=== PATIENT | male | born 1980 | race Caucasian/White ===

== ENCOUNTER 2018-01-20 10:15 | Emergency (ER) | payer SELFPAY ==
[2018-01-20 11:06] LABS: BASOPHILS # (AUTO) 0.1 10^3/uL (0.0-0.1); EOSINOPHILS % (AUTO) 0.5 %; HGB - HEMOGLOBIN 13.8 g/dL (14.0-18.0); LYMPHOCYTES # (AUTO) 1.1 10^3/uL (1.5-3.5); LYMPHOCYTES % (AUTO) 17.7 %; MEAN CORPUSCULAR HEMOGLOBIN 38.8 pg (27.0-31.0); MEAN CORPUSCULAR HGB CONC 35.4 g/dL (32.0-36.0); MEAN CORPUSCULAR VOLUME 109.7 fL (80.0-94.0); MEAN PLATELET VOLUME 9.3 fL (7.4-11.4); MONOCYTES # (AUTO) 0.4 10^3/uL (0.0-1.0); NEUTROPHILS # (AUTO) 4.6 10^3/uL (1.5-6.6); NEUTROPHILS % (AUTO) 73.8 %; PLT - PLATELET COUNT 137 10^3/uL (130-450); RED BLOOD COUNT 3.56 10^6/uL (4.70-6.10); RED CELL DISTRIBUTION WIDTH 15.2 % (12.0-15.0); WHITE BLOOD COUNT 6.2 x10^3/uL (4.8-10.8)
--- NOTE | 2018-01-20 11:11 | ED Physician Documentation ---
History of Present Illness - Stated complaint Stated Complaint: BILAT LEG PX - Chief complaint Chief Complaint: Ext Problem - History obtained from History obtained from: Patient - Additonal information Additional information: The patient is a 37-year-old male who is concerned about "purple" spots on his feet and ankles, as well as a feeling of "pins and needles" in his feet sometimes at night. He states I "just don't feel right." He has noticed the symptoms over the past year. He does not have a primary physician, and his friends have advised him that his symptoms might be due to the diabetes. He drinks alcohol on a daily basis, and smokes cigarettes. Review of Systems Constitutional: denies: Fever Eyes: denies: Irritation Ears: denies: Tinnitus/ringing Nose: denies: Congestion Throat: denies: Sore throat Cardiac: denies: Chest pain / pressure, Palpitations Respiratory: reports: Cough (chronic smoker's cough). denies: Dyspnea GI: denies: Abdominal Pain, Nausea, Vomiting : denies: Dysuria Skin: denies: Rash Musculoskeletal: denies: Extremity swelling Neurologic: reports: Other ("Pins and needles" in feet sometimes at night.). denies: Focal weakness, Numbness Endocrine: denies: Polydypsia, Polyuria PD PAST MEDICAL HISTORY - Past Medical History Cardiovascular: None Respiratory: None Endocrine/Autoimmune: None GI: None : None HEENT: None Psych: None Musculoskeletal: None Derm: None - Past Surgical History Past Surgical History: No - Present Medications Home Medications: Ambulatory Orders Medication Instructions Recorded Confirmed No Known Home Medications [No 01/20/18 01/20/18 Known Home Medications] - Allergies Allergies/Adverse Reactions: Allergies Allergy/AdvReac Type Severity Reaction Status Date / Time No Known Drug Allergies Allergy Verified 01/13/16 16:06 - Social History Does the pt smoke?: Yes Smoking Status: Current every day smoker Does the pt drink ETOH?: Yes Does the pt have substance abuse?: No - Immunizations Immunizations are current?: Yes PD ED PE NORMAL - Vitals Vital signs reviewed: Yes (hypertensive) - General General: Alert and oriented X 3, Well developed/nourished, Other (Odor of stale alcohol on his breath.) - HEENT HEENT: Atraumatic, Pharynx benign - Neck Neck: No adenopathy, No JVD - Cardiac Cardiac: RRR, No murmur - Respiratory Respiratory: No respiratory distress, Clear bilaterally - Abdomen Abdomen: Soft, Non tender, No organomegaly, Other (Rotund abdomen.) - Back Back: No CVA TTP - Derm Derm: Other (Petechia noted on ankles, consistent with capillary fragility.) - Extremities Extremities: No edema, No calf tenderness / cord - Neuro Neuro: Alert and oriented X 3, No motor deficit, No sensory deficit Results - Vitals Vitals: Vital Signs - 24 hr 01/20/18 01/20/18 10:20 11:51 Temperature 36.3 C L Heart Rate 95 92 Respiratory 16 20 Rate Blood Pressure 141/103 H 154/119 H O2 Saturation 100 98 Oxygen O2 Source Room air - Labs Labs: Laboratory Tests 01/20/18 01/20/18 11:03 11:03 WBC 6.2 RBC 3.56 L Hgb 13.8 L Hct 39.1 L MCV 109.7 H MCH 38.8 H MCHC 35.4 RDW 15.2 H Plt Count 137 MPV 9.3 Neut # (Auto) 4.6 Lymph # (Auto) 1.1 L Young # (Auto) 0.4 Eos # (Auto) 0.0 Baso # (Auto) 0.1 Absolute Nucleated RBC 0.00 Nucleated RBC % 0.0 Sodium 138 Potassium 3.1 L Chloride 97 L Carbon Dioxide 32 Anion Gap 9.0 BUN 7 Creatinine 0.8 Estimated GFR (MDRD) 108 Glucose 87 Calcium 8.4 L Total Bilirubin 1.4 H AST 129 H ALT 57 Alkaline Phosphatase 126 H Total Protein 6.4 L Albumin 3.3 Globulin 3.1 Albumin/Globulin Ratio 1.1 Lipase 42 PD MEDICAL DECISION MAKING - ED course Complexity details: reviewed results, re-evaluated patient, considered differential, d/w patient ED course: The patient's presentation is consistent with stigmata of chronic alcohol abuse. The small petechiae and his ankles is consistent with capillary fragility. Laboratory results reveal macrocytosis, mild hypokalemia with potassium 3.1, and mild elevation of his liver enzymes, with bilirubin 1.4 and alkaline phosphatase 126. There is no clinical evidence of diabetes, with a normal blood sugar of 87. Disposition I discussed with the patient the underlying cause of his symptoms, and offered counseling for alcohol addiction. He declined. He will continue to seek an accepting primary care physician. I discussed with him potentially worrisome signs or symptoms that should prompt reevaluation in the emergency department. - Sepsis Event Vital Signs: Vital Signs - 24 hr 01/20/18 01/20/18 10:20 11:51 Temperature 36.3 C L Heart Rate 95 92 Respiratory 16 20 Rate Blood Pressure 141/103 H 154/119 H O2 Saturation 100 98 Oxygen O2 Source Room air Departure - Departure Disposition: 01 Home, Self Care Clinical Impression: Capillary fragility, Alcohol abuse Condition: Stable Instructions: ED Alcohol Abuse Comments: Try to refrain from alcohol. Take supplemental vitamin with folate. Follow-up with primary physician at next available appointment. Return to the emergency department if you develop worsening symptoms. Discharge Date/Time: 01/20/18 11:51
[2018-01-20 11:19] LABS: ALBUMIN 3.3 g/dL (3.2-5.5); ALBUMIN/GLOBULIN RATIO 1.1 (1.0-2.2); BILIRUBIN,TOTAL 1.4 mg/dL (0.2-1.0); CALCIUM 8.4 mg/dL (8.5-10.3); CREATININE 0.8 mg/dL (0.6-1.2); TOTAL PROTEIN 6.4 g/dL (6.7-8.2)
[2018-01-20 11:53] VITALS: BP 154/119
== END 2018-01-20 11:51 | disposition home or self-care (01) ==
LOC: ED 10:15
DX: D69.8 Other specified hemorrhagic conditions (principal); F10.10 Alcohol abuse, uncomplicated; F17.200 Nicotine dependence, unspecified, uncomplicated
CPT/HCPCS: 36415; 80053; 83690; 85025; 99283

== ENCOUNTER 2018-09-04 13:09 | Emergency (ER) | payer SELFPAY ==
--- NOTE | 2018-09-04 14:01 | XRAY Report ---
Reason: chest paIn Procedure Date: 09/04/2018 Accession Number: [id number] / [id number] Procedure: XR - Chest 1 View X-Ray CPT Code: 37495 FULL RESULT: EXAM: CHEST RADIOGRAPHY EXAM DATE: 09/04/2018 01:43 PM. CLINICAL HISTORY: Chest pain. COMPARISON: [facility]BS W/PA CHEST LT 10/28/2014 8:46 AM. TECHNIQUE: 1 view. FINDINGS: Lungs/Pleura: No focal opacities evident. No pleural effusion. No pneumothorax. Mediastinum: Within exam limitations, the cardiomediastinal contour is normal. Other: None. IMPRESSION: No acute cardiopulmonary abnormality. RADIA
[2018-09-04 14:27] LABS: ALBUMIN 3.5 g/dL (3.2-5.5); ALBUMIN/GLOBULIN RATIO 1.1 (1.0-2.2); BILIRUBIN,TOTAL 1.5 mg/dL (0.2-1.0); CALCIUM 8.8 mg/dL (8.5-10.3); CREATININE 0.8 mg/dL (0.6-1.2); TOTAL PROTEIN 6.8 g/dL (6.7-8.2)
--- NOTE | 2018-09-04 14:46 | ED Physician Documentation ---
PD HPI ABD PAIN - Stated complaint Stated Complaint: CP - Chief complaint Chief Complaint: Cardiac - History obtained from History obtained from: Patient - History of Present Illness Timing - onset: Other (Had 2 dental extractions 4 days ago. Next day developed sharp/stabbing Left upper chest pain that comes and goes. Worse with cough and movement and deep breathing. Better after using vicodin and alcohol together this morning.) - Additional information Additional information: Admits to drinking "a lot" and "enough." No other current drug use but H/O polysubstance use. Review of Systems Ten Systems: 10 systems reviewed and negative Constitutional: denies: Fever, Chills Nose: reports: Reviewed and negative Throat: reports: Reviewed and negative Cardiac: reports: Chest pain / pressure, Reviewed and negative Respiratory: reports: Cough. denies: Dyspnea GI: denies: Abdominal Pain, Nausea, Vomiting PD PAST MEDICAL HISTORY - Past Medical History Cardiovascular: None Respiratory: None Endocrine/Autoimmune: None GI: None : None HEENT: None Psych: None Musculoskeletal: None Derm: None - Past Surgical History Past Surgical History: No - Present Medications Home Medications: Ambulatory Orders Medication Instructions Recorded Confirmed Amoxicillin 500 mg PO 09/04/18 Ibuprofen 800 mg PO 09/04/18 09/04/18 Oxycodone HCl/Acetaminophen 09/04/18 [Oxycodone-Acetaminophen 5-325] Potassium Gluconate 99 mg PO 09/04/18 - Allergies Allergies/Adverse Reactions: Allergies Allergy/AdvReac Type Severity Reaction Status Date / Time No Known Drug Allergies Allergy Verified 09/04/18 13:34 - Social History Does the pt smoke?: Yes Smoking Status: Current every day smoker Does the pt drink ETOH?: Yes Does the pt have substance abuse?: No - Immunizations Immunizations are current?: Yes PD ED PE NORMAL - Vitals Vital signs reviewed: Yes - General General: Alert and oriented X 3, No acute distress - HEENT HEENT: PERRL, EOMI - Neck Neck: Supple, no meningeal sign, No bony TTP - Cardiac Cardiac: RRR, No murmur - Respiratory Respiratory: No respiratory distress, Clear bilaterally - Abdomen Abdomen: Soft, Non tender - Back Back: No CVA TTP, No spinal TTP - Derm Derm: Normal color, Warm and dry - Extremities Extremities: No edema, No calf tenderness / cord - Neuro Neuro: Alert and oriented X 3, Normal speech Results - Vitals Vitals: Vital Signs - 24 hr 09/04/18 09/04/18 09/04/18 13:31 14:51 14:54 Temperature 36.7 C 36.5 C Heart Rate 93 91 Respiratory 20 18 Rate Blood Pressure 146/87 H 117/70 Blood Pressure 117/70 [Left] O2 Saturation 98 99 Oxygen O2 Source Room air - EKG (time done) 1344 Rate: Rate (enter#) (91) Rhythm: NSR [place]: Normal Intervals: Normal MS QRS: Normal Ischemia: Non specific changes Computer interpretation: Agree with computer - Labs Labs: Laboratory Tests 09/04/18 09/04/18 14:03 14:03 Sodium 138 Potassium 3.3 L Chloride 97 L Carbon Dioxide 31 Anion Gap 10.0 BUN 10 Creatinine 0.8 Estimated GFR (MDRD) 108 Glucose 89 Calcium 8.8 Total Bilirubin 1.5 H AST 83 H ALT 65 H Alkaline Phosphatase 102 Troponin I < 0.04 Total Protein 6.8 Albumin 3.5 Globulin 3.3 Albumin/Globulin Ratio 1.1 Lipase 34 - Rads (name of study) 1v chest Radiology: EMP read contemporaneously (NAD) PD MEDICAL DECISION MAKING - ED course ED course: This is a 37-year-old gentleman with musculoskeletal left-sided chest pain that is been constant for 3 days. Nothing in the history to suggest PE, he was not under general anesthesia for the dental extraction. Departure - Departure Disposition: 01 Home, Self Care Clinical Impression: Alcohol abuse, Pleurisy Condition: Good Record reviewed to determine appropriate education?: Yes Instructions: ED Chest Pain NonCardiac Comments: You can take ibuprofen as needed for the pain. Return for new or worsening symptoms. As discussed it is imperative to cut down in your drinking, in fact he should stop drinking. You are developing liver damage from it.
[2018-09-04 14:52] VITALS: BP 117/70
== END 2018-09-04 15:27 | disposition home or self-care (01) ==
LOC: ED 13:09
DX: R09.1 Pleurisy (principal); F10.10 Alcohol abuse, uncomplicated; F17.200 Nicotine dependence, unspecified, uncomplicated
CPT/HCPCS: 36415; 71045; 80053; 83690; 84484; 85025; 93005; 99283

== ENCOUNTER 2019-05-09 19:45 | Emergency (ER) | payer OTHER ==
--- NOTE | 2019-05-09 19:47 | ED Physician Documentation ---
History of Present Illness - Stated complaint Stated Complaint: FIT FOR CONFINEMENT - History obtained from History obtained from: Patient, Police - History of Present Illness Timing: Today (He was brought in by deputy court clerk for alcohol intoxication and medical clearance for the intermediate. The prehospital breathalyzer was 346. Last drink was about an hour and a half ago. Patient has no specific complaints or injuries.) Review of Systems Cardiac: denies: Chest pain / pressure, Palpitations Respiratory: denies: Dyspnea, Cough PD PAST MEDICAL HISTORY - Past Medical History Cardiovascular: None Respiratory: None Endocrine/Autoimmune: None GI: None : None HEENT: None Psych: None Musculoskeletal: None Derm: None - Past Surgical History Past Surgical History: No - Present Medications Home Medications: Ambulatory Orders Medication Instructions Recorded Confirmed No Known Home Medications 05/09/19 05/09/19 - Allergies Allergies/Adverse Reactions: Allergies Allergy/AdvReac Type Severity Reaction Status Date / Time No Known Drug Allergies Allergy Verified 05/09/19 20:10 - Social History Does the pt smoke?: Yes Smoking Status: Current every day smoker Does the pt drink ETOH?: Yes Does the pt have substance abuse?: No - Immunizations Immunizations are current?: Yes PD ED PE NORMAL - Vitals Vital signs reviewed: Yes - General General: Alert and oriented X 3, No acute distress - HEENT HEENT: PERRL, EOMI - Neck Neck: Supple, no meningeal sign, No bony TTP - Cardiac Cardiac: RRR, No murmur - Respiratory Respiratory: No respiratory distress, Clear bilaterally - Abdomen Abdomen: Non tender - Neuro Neuro: Alert and oriented X 3, No motor deficit, No sensory deficit, Normal speech Results - Vitals Vitals: Vital Signs - 24 hr 05/09/19 19:48 Temperature 36.7 C Heart Rate 100 Respiratory 18 Rate Blood Pressure 138/104 H O2 Saturation 99 Oxygen O2 Source Room air PD MEDICAL DECISION MAKING - ED course ED course: Spoke with Kaylyn Gill intermediate nurse practitioner who agrees with plan and will monitor for withdrawal since his blood alcohol is quite high but his mental status is normal and this likely suggest that he is a chronic alcoholic. Otherwise does not need any specific medical care right now as he is alert and oriented and has been an hour or 2 without drinking. Departure - Departure Disposition: 01 Home, Self Care Clinical Impression: Alcohol abuse Condition: Good Record reviewed to determine appropriate education?: Yes Instructions: ED Alcohol Intoxication Discharge Date/Time: 05/09/19 19:50
[2019-05-09 20:08] VITALS: BP 138/104
== END 2019-05-09 19:50 | disposition home or self-care (01) ==
LOC: ED 19:45
DX: Z02.89 Encounter for other administrative examinations (principal); F10.10 Alcohol abuse, uncomplicated; F17.200 Nicotine dependence, unspecified, uncomplicated
CPT/HCPCS: 99281; 99283

== ENCOUNTER 2021-01-31 08:33 | Emergency (ER) | payer MEDICAID ==
[2021-01-31 08:54] VITALS: BP 122/97
--- NOTE | 2021-01-31 08:54 | ED Physician Documentation ---
PD HPI Fall - Stated complaint Stated Complaint: RIB PX - History obtained from History obtained from: Patient - History of Present Illness Mechanism of injury: Tripped, Lost balance Fall distance: Other (down several stairs, and struck right lateral chestwall on railing. Pain at rib/chest that has continued. Worse today when coughed. Some dyspnea.) Timing - onset: How many days ago (6) Injury(ies) location: Chest (right lateral chestwall) Quality of pain: Pain, Sharp Associated symptoms: Dyspnea. No: LOC, AMS, Weakness, Paresthesias Worsens with: Movement, Other (cough and deep breathing) Contributing factors: No: Anticoagulated, Intoxicated Similar symptoms before: Diagnosis (prior rib fractures, and knew "no particular treatment' so had not sought care until hurt more today and felt some dyspnea.) Recently seen: Not recently seen Review of Systems Constitutional: denies: Fever, Chills, Myalgias Nose: denies: Rhinorrhea / runny nose, Congestion Cardiac: reports: Chest pain / pressure. denies: Palpitations, Pedal edema, Calf pain Respiratory: reports: Cough (the past couple of days). denies: Wheezing Skin: denies: Abrasion (s), Laceration (s) Neurologic: denies: Focal weakness, Numbness PD PAST MEDICAL HISTORY - Past Medical History Cardiovascular: None Respiratory: None Endocrine/Autoimmune: None GI: None : None HEENT: None Psych: None Musculoskeletal: None Derm: None - Past Surgical History Past Surgical History: No - Present Medications Home Medications: Ambulatory Orders Medication Instructions Recorded Confirmed HYDROcod/ACETAM 5/325 [[place] 5/325] 1 ea PO Q6H PRN #20 tablet 01/31/21 Ibuprofen [Motrin] 600 mg PO TID PRN #25 tab 01/31/21 PARoxetine HCl [Paxil] 1 tab PO DAILY 01/31/21 01/31/21 - Allergies Allergies/Adverse Reactions: Allergies Allergy/AdvReac Type Severity Reaction Status Date / Time No Known Drug Allergies Allergy Verified 01/31/21 08:54 - Social History Does the pt smoke?: Yes Smoking Status: Current every day smoker Does the pt drink ETOH?: Yes Does the pt have substance abuse?: No - Immunizations Immunizations are current?: Yes - POLST Patient has POLST: No PD ED PE NORMAL - Vitals Vital signs reviewed: Yes - General General: Alert and oriented X 3, No acute distress (he appears uncomfortable with movement and deep breathing), Well developed/nourished - Neck Neck: Supple, no meningeal sign, No bony TTP - Cardiac Cardiac: RRR, No murmur - Respiratory Respiratory: Clear bilaterally, Other (right lateral chest wall anbout rib 8 with tenderness but no crepitance. No bruising seen. ) - Abdomen Abdomen: Soft, Non tender - Derm Derm: Normal color, Warm and dry - Extremities Extremities: Normal ROM s pain - Neuro Neuro: Alert and oriented X 3, No motor deficit, No sensory deficit, Normal speech Results - Vitals Vitals: Oxygen O2 Source Room air - Rads (name of study) right ribs with chest Radiology: Prelim report reviewed (no PTX nor effusion. 8th rib fracture minimally displaced. Remote healed 9th rib fracture. ), See rad report PD MEDICAL DECISION MAKING - ED course Complexity details: reviewed results, considered differential, d/w patient ED course: I signed AFL[employer] form for him with diagnosis. Work note for off few days then light duty. He does lifting and torsional work. Departure - Departure Disposition: 01 Home, Self Care Clinical Impression: Accidental fall Qualifiers: Encounter type: initial encounter Qualified Code(s): W19.XXXA - Unspecified f all, initial encounter Rib fractures Qualifiers: Encounter type: initial encounter Fracture type: closed Laterality: right Qualified Code(s): S22.41XA - Multiple fractures of ribs, right side, initial encounter for closed fracture Condition: Stable Record reviewed to determine appropriate education?: Yes Instructions: ED Fx Rib Prescriptions: Ibuprofen [Motrin] 600 mg PO TID PRN #25 tab PRN Reason: Pain HYDROcod/ACETAM 5/325 [[place] 5/325] 1 ea PO Q6H PRN #20 tablet PRN Reason: Pain Comments: You have 2 or 3 broken ribs on x-ray. To appear just hairline cracks with one a bit more out of place. You will likely need this week as well off work. Progress activity as tolerated after that. Purposeful deep breathing for good lung expansion. Your x-ray does not show any lung injury. Anti-inflammatory such as ibuprofen 3 times a day with food. To that add Tylenol or hydrocodone as needed for pain. Follow-up with your primary care or walk-in clinic if not improved well over the next week or so. It would likely take 4 to 6 weeks to really resolve completely but activity as tolerated after another week or so. Transmitted your prescription to [facility] in [place]. I am prescribing a short course of narcotic pain medication for you. These are potentially dangerous and addictive medications that should be used carefully. These medications may constipate you. Take an [id number] stool softener such as docusate twice daily with plenty of water while taking these medications. If you go 24 hours without a bowel movement, take [id number] MiraLAX, per package instructions. Do not drink or drive while taking these medications. If you received narcotic or sedating medications while in the emergency department do not drive for 24 hours. Store this medication in a safe, secure place and out of reach of children. It is a violation of federal law to give or sell this medication to another person or to use in a manner other than prescribed. The ED will not refill narcotic prescriptions, including prescriptions lost or stolen. You can dispose of unwanted medications at the [facility]'s office or at several pharmacies such as [facility]. Forms: Activity restrictions Discharge Date/Time: 01/31/21 10:14
[2021-01-31] MEDS ORDERED: IBUPROFEN 600 MG TABLET PO STA (09:04)
[2021-01-31] MEDS ORDERED: HYDROcod/ACETAM 5/325 MG TABLET PO STA (09:04)
--- NOTE | 2021-01-31 11:02 | XRAY Report ---
PROCEDURE: Ribs w/PA Chest RT INDICATIONS: fall and right ribs/chest pain TECHNIQUE: 2 views of the right ribs were acquired, along with a single view chest. COMPARISON: 09/04/2018, 10/28/2014 FINDINGS: Surgical changes and devices: None. Bones and chest wall: There is a mildly displaced right lateral eighth rib fracture. No definite carol tional acute fractures are seen. There is a known remote left lateral ninth rib fracture. No suspicio us bony lesions. Overlying soft tissues appear unremarkable. Lungs and pleura: No pleural effusions or pneumothorax. Lungs appear clear. Mediastinum: Mediastinal contours appear normal. Heart size is normal. IMPRESSION: Mildly displaced right lateral eighth rib fracture. No pneumothorax. Remote left lateral ninth rib fracture, as previously seen. Note: Case discussed by telephone with Dr. Francis at 9:14 AM on 01/31/2021. Reviewed by: Randell Llanes MD on 01/31/2021 10:00 AM [facility] Approved by: Randell Llanes MD on 01/31/2021 10:00 AM [facility] Station ID: [id number]
== END 2021-01-31 10:14 | disposition home or self-care (01) ==
LOC: ED 08:33
DX: S22.41XA Multiple fractures of ribs, right side, initial encounter for closed fracture (principal); W10.9XXA Fall (on) (from) unspecified stairs and steps, initial encounter; F17.200 Nicotine dependence, unspecified, uncomplicated
CPT/HCPCS: 71101; 99283; A9270

== ENCOUNTER 2021-03-19 15:10 | Emergency (ER) | payer MEDICAID ==
[2021-03-19 15:18] VITALS: BP 125/93
--- NOTE | 2021-03-19 15:53 | XRAY Report ---
PROCEDURE: Foot 3 View LT INDICATIONS: forefoot pain TECHNIQUE: 3 views of the foot were acquired. COMPARISON: None. FINDINGS: BONES: No acute, displaced fracture or dislocation. Mild joint space loss and sclerosis of the first metatarsophalangeal joint with fibrocystic change of the base of the first proximal phalanx. SOFT TISSUES: No acute abnormality. IMPRESSION: 1.No acute osseous abnormality. Reviewed by: Chas Dawson MD on 03/19/2021 3:52 PM PDT Approved by: Chas Dawson MD on 03/19/2021 3:52 PM PDT Station ID: [id number]
--- NOTE | 2021-03-19 16:05 | ED Physician Documentation ---
History of Present Illness - Stated complaint Stated Complaint: LT FOOT PX - Chief complaint Chief Complaint: Ext Problem - Additonal information Additional information: 40-year-old male presents emergency department for evaluation of acute left forefoot pain that began this morning upon waking. Denies any falls or trauma. No history of similar in the past. Has difficulty bearing weight when stepping forward. Review of Systems Eyes: reports: Reviewed and negative Nose: reports: Reviewed and negative Throat: reports: Reviewed and negative Respiratory: reports: Reviewed and negative GI: reports: Reviewed and negative : reports: Reviewed and negative Musculoskeletal: reports: Extremity swelling (Left foot) PD PAST MEDICAL HISTORY - Past Medical History Cardiovascular: None Respiratory: None Endocrine/Autoimmune: None GI: None : None HEENT: None Psych: None Musculoskeletal: None Derm: None - Past Surgical History Past Surgical History: No - Present Medications Home Medications: Ambulatory Orders Medication Instructions Recorded Confirmed HYDROcod/ACETAM 5/325 [[place] 5/325] 1 ea PO Q6H PRN #20 tablet 01/31/21 Ibuprofen [Motrin] 600 mg PO TID PRN #25 tab 01/31/21 PARoxetine HCl [Paxil] 1 tab PO DAILY 01/31/21 01/31/21 - Allergies Allergies/Adverse Reactions: Allergies Allergy/AdvReac Type Severity Reaction Status Date / Time No Known Drug Allergies Allergy Verified 03/19/21 15:13 - Social History Does the pt smoke?: Yes Smoking Status: Current every day smoker Does the pt drink ETOH?: Yes Does the pt have substance abuse?: No - Immunizations Immunizations are current?: Yes - POLST Patient has POLST: No PD ED PE EXPANDED - General General: Alert, No acute distress - Extremities Extremities: Left foot (Tenderness distal left lateral foot over the fourth and fifth meta tarsals. No deformity or swelling. No pain in the ankle. Full range of motion normal flexion inversion eversion of the foot.) Results - Vitals Vitals: Vital Signs - 24 hr 03/19/21 15:13 Temperature 36.2 C L Heart Rate 103 H Respiratory 18 Rate Blood Pressure 125/93 H O2 Saturation 97 Oxygen O2 Source Room air - Rads (name of study) Left foot Radiology: Final report received (No acute fracture dislocation) PD MEDICAL DECISION MAKING - ED course Complexity details: reviewed results, d/w patient ED course: 40-year-old male presents emergency department for evaluation of acute left foot pain in the absence of trauma. Pain on the distal fourth and fifth metatarsals without obvious deformity or history to suggest fracture. X-ray today is negative. I did offer this gentleman a walking boot or crutches but he declined. Requested a note to return to work tomorrow recommend Tylenol and ibuprofen. If symptoms not better in 7-10 days and return to the ER for repeat evaluation rule out occult fracture. Departure - Departure Disposition: 01 Home, Self Care Clinical Impression: Pain in left foot Condition: Stable Record reviewed to determine appropriate education?: Yes Comments: William the x-ray of your foot does not show any broken bones. The cause of your foot pain is not obvious. The x-ray does not show an acute fracture. I recommend he take Tylenol and ibuprofen [id number] for discomfort. If your pain is not much better in 7 to 10 days you should have the foot warner-rayed to make sure we have not missed a subtle fracture.
== END 2021-03-19 16:17 | disposition home or self-care (01) ==
LOC: ED 15:10
DX: M79.672 Pain in left foot (principal); F17.200 Nicotine dependence, unspecified, uncomplicated
CPT/HCPCS: 99282; 99283